=== PATIENT | female | born 1940 | race African-American/Black ===

== ENCOUNTER 2022-05-13 18:05 | Inpatient (IN) | payer OTHER ==
[2022-05-13 18:18] VITALS: BMI 30.5
[2022-05-13] MEDS ORDERED: methylPREDNISolone NA SUCC 125 MG/2 ML VIAL IVPUSH ONE (19:45)
[2022-05-13] MEDS ORDERED: AZITHROMYCIN IVPB 500 MG in DEXTROSE 5%-WATER - 250 ML IVPB ONE (19:46)
[2022-05-13 19:48] LABS: BASO % 1.6 % (0-2.0); EOS % 2.3 % (0-4.5); HEMATOCRIT 33.8 % (32.4-45.2); HEMOGLOBIN 10.7 GM/dL (10.7-15.3); LYMPH % 20.5 % (8-40); MCH 29.3 pg (25.7-33.7); MCHC 31.7 g/dl (32.0-36.0); MEAN CELL VOLUME 92.6 fl (80-96); MEAN PLT VOLUME 8.6 fl (7.5-11.1); MONO % 8.8 % (3.8-10.2); NEUT % 66.8 % (42.8-82.8); PLATELET COUNT 221 10^3/uL (134-434); RBC 3.65 M/mm3 (3.60-5.2); RDW 15.7 % (11.6-15.6); WHITE BLOOD COUNT 6.1 K/mm3 (4.0-10.0)
[2022-05-13] MEDS ORDERED: ACETAMINOPHEN 1000 MG/100 ML BAG IVPB ONE (19:48)
[2022-05-13] MEDS ORDERED: ALBUTEROL SO4 2.5/IPRATROPIUM 0.5 INH SOL 3 ML VIAL.NEB. NEB ONE (19:53)
[2022-05-13] MEDS ORDERED: methylPREDNISolone NA SUCC 125 MG/2 ML VIAL ONE (19:54)
[2022-05-13] MEDS ORDERED: AZITHROMYCIN IVPB 500 MG/250 ML BAG IVPB ONE (19:54)
[2022-05-13] MEDS ORDERED: ACETAMINOPHEN INJECTION 100 ML IVPB ONE (19:54)
[2022-05-13] MEDS: ALBUTEROL SO4 2.5/IPRATROPIUM 0.5 INH SOL 3 ML VIAL.NEB. NEB SCH ×3 (20:00→20:30)
[2022-05-13 20:09] LABS: CALCIUM 8.4 mg/dL (8.5-10.1)
[2022-05-13 20:10] LABS: ALBUMIN 2.6 g/dl (3.4-5.0); BLOOD UREA NITROGEN 27.9 mg/dL (7-18)
[2022-05-13 20:13] LABS: CREATININE 1.5 mg/dL (0.55-1.3)
[2022-05-13 20:15] LABS: BILIRUBIN,TOTAL 0.4 mg/dL (0.2-1); TOT PROT 6.6 g/dl (6.4-8.2)
[2022-05-13 20:18] LABS: N-TERMINAL BNP 5128.7 pg/ml (5-450)
[2022-05-13] MEDS ORDERED: FUROSEMIDE 40 MG/4 ML INJECTABLE VIAL IVPUSH ONE (20:26)
[2022-05-13 20:56] LABS: ANISOCYTOSIS 1+; MACROCYTOSIS 0
[2022-05-13] MEDS ORDERED: OSELTAMIVIR PHOSPHATE 75 MG CAPSULE PO ONE (22:20)
[2022-05-13] MEDS ORDERED: FUROSEMIDE 40 MG/4 ML INJECTABLE VIAL ONE (22:24)
[2022-05-13] MEDS ORDERED: SENNOSIDES 8.6MG TABLET (FP) PO PRN (23:29)
[2022-05-13] MEDS ORDERED: diphenhydrAMINE HCL 25 MG CAPSULE (FP) PO PRN (23:32)
[2022-05-14] MEDS: APIXABAN 5 MG TABLET PO SCH ×3 (00:08→23:21)
[2022-05-14] MEDS: INSULIN SLIDING SCALE (NOVOLOG) 1 VIAL SQ SCH ×4 (06:18→23:27)
[2022-05-14 08:18] LABS: INR 1.39 (0.83-1.09)
[2022-05-14 08:20] LABS: BASO % 0.3 % (0-2.0); HEMOGLOBIN 10.5 GM/dL (10.7-15.3); LYMPH % 17.6 % (8-40); MCH 29.6 pg (25.7-33.7); MCHC 31.8 g/dl (32.0-36.0); MEAN CELL VOLUME 92.8 fl (80-96); MONO % 1.5 % (3.8-10.2); NEUT % 80.6 % (42.8-82.8); PLATELET COUNT 183 10^3/uL (134-434); RBC 3.56 M/mm3 (3.60-5.2); RDW 15.9 % (11.6-15.6)
[2022-05-14 08:21] LABS: ACTIVATED PTT 33.5 SECONDS (25.2-36.5)
[2022-05-14 08:23] LABS: CALCIUM 8.5 mg/dL (8.5-10.1)
[2022-05-14 08:24] LABS: BLOOD UREA NITROGEN 31.8 mg/dL (7-18)
[2022-05-14 08:27] LABS: CREATININE 1.6 mg/dL (0.55-1.3); PHOSPHOROUS 4.4 mg/dL (2.5-4.9)
[2022-05-14] MEDS: FOLIC ACID 1 MG TABLET (FP) PO SCH (10:18)
[2022-05-14] MEDS: FLUTICASONE PROP 0.05% 16 GM NASAL SPRAY NS SCH ×2 (10:18→23:29)
[2022-05-14] MEDS: metoPROLOL SUCCINATE 25 MG TAB.SR.24H (FP) PO SCH (10:18)
[2022-05-14] MEDS: OSELTAMIVIR PHOSPHATE 30 MG CAPSULE PO SCH ×2 (10:18→23:22)
[2022-05-14] MEDS: PANTOPRAZOLE 20 MG TABLET PO SCH (10:18)
[2022-05-14] MEDS: amLODIPine BESYLATE 5 MG TABLET (FP) PO SCH (13:32)
[2022-05-14] MEDS: DOCUSATE SODIUM 100 MG CAPSULE (FP) PO SCH (23:10)
[2022-05-14] MEDS: guaiFENesin/D-M SUGAR-FREE/ACLHOL-FREE 118 ML BOTTLE PO PRN (23:28)
[2022-05-14] MEDS ORDERED: ACETAMINOPHEN 325 MG TABLET (FP) PO PRN (23:53)
[2022-05-15] MEDS: INSULIN SLIDING SCALE (NOVOLOG) 1 VIAL SQ SCH ×4 (06:24→21:22)
[2022-05-15] MEDS: guaiFENesin/D-M SUGAR-FREE/ACLHOL-FREE 118 ML BOTTLE PO PRN (07:47)
[2022-05-15] MEDS: amLODIPine BESYLATE 5 MG TABLET (FP) PO SCH (10:34)
[2022-05-15] MEDS: FOLIC ACID 1 MG TABLET (FP) PO SCH (10:34)
[2022-05-15] MEDS: FLUTICASONE PROP 0.05% 16 GM NASAL SPRAY NS SCH ×2 (10:34→21:22)
[2022-05-15] MEDS: APIXABAN 5 MG TABLET PO SCH ×2 (10:34→21:23)
[2022-05-15] MEDS: metoPROLOL SUCCINATE 25 MG TAB.SR.24H (FP) PO SCH (10:34)
[2022-05-15] MEDS: PANTOPRAZOLE 20 MG TABLET PO SCH (10:34)
[2022-05-15] MEDS: OSELTAMIVIR PHOSPHATE 30 MG CAPSULE PO SCH ×2 (10:37→21:22)
[2022-05-15] MEDS: methylPREDNISolone NA SUCC 40 MG/1 ML VIAL IVPUSH SCH ×2 (12:45→17:45)
[2022-05-15] MEDS: DOCUSATE SODIUM 100 MG CAPSULE (FP) PO SCH (21:40)
[2022-05-16] MEDS: methylPREDNISolone NA SUCC 40 MG/1 ML VIAL IVPUSH SCH ×2 (01:31→09:42)
[2022-05-16 06:13] VITALS: PULSE 85; TEMP 98.2
[2022-05-16] MEDS: INSULIN SLIDING SCALE (NOVOLOG) 1 VIAL SQ SCH ×2 (06:14→12:07)
[2022-05-16] MEDS: FOLIC ACID 1 MG TABLET (FP) PO SCH (09:41)
[2022-05-16] MEDS: metoPROLOL SUCCINATE 25 MG TAB.SR.24H (FP) PO SCH (09:41)
[2022-05-16] MEDS: PANTOPRAZOLE 20 MG TABLET PO SCH (09:41)
[2022-05-16] MEDS: APIXABAN 5 MG TABLET PO SCH (09:42)
[2022-05-16] MEDS: FLUTICASONE PROP 0.05% 16 GM NASAL SPRAY NS SCH (09:42)
[2022-05-16] MEDS: amLODIPine BESYLATE 5 MG TABLET (FP) PO SCH (09:42)
[2022-05-16] MEDS: OSELTAMIVIR PHOSPHATE 30 MG CAPSULE PO SCH (09:45)
[2022-05-16] MEDS ORDERED: ALBUTEROL SO4 HFA INHALER IH SCH (11:00)
[2022-05-16 11:22] VITALS: BP 153/92; RESP 18
== END 2022-05-16 15:22 | DRG 194 ==
LOC: JER 18:05 → JERBED 20:27 → J4W 23:22
PROVIDERS: ADMIT Internal Medicine; ATTEND Internal Medicine
DX: J10.1 Influenza due to other identified influenza virus with other respiratory manifestations (principal); J44.1 Chronic obstructive pulmonary disease with (acute) exacerbation; E78.00 Pure hypercholesterolemia, unspecified; I10 Essential (primary) hypertension; E11.9 Type 2 diabetes mellitus without complications; R60.9 Edema, unspecified; Z85.3 Personal history of malignant neoplasm of breast
CPT/HCPCS: 0241U-QW; 36415; 71045-TC-FY; 80048; 80053; 82962; 83735; 83880; 84100; 84484; 85025; 85610; 85730; 93005; 93010; 99285-25

== ENCOUNTER 2023-06-28 14:41 | Inpatient (IN) | payer OTHER ==
[2023-06-28 16:06] LABS: BASO % 0.7 % (0-2.0); EOS % 2.9 % (0-4.5); HEMATOCRIT 36.4 % (32.4-45.2); HEMOGLOBIN 11.9 GM/dL (10.7-15.3); MCH 30.1 pg (25.7-33.7); MCHC 32.6 g/dl (32.0-36.0); MEAN CELL VOLUME 92.2 fl (80-96); MEAN PLT VOLUME 9.1 fl (7.5-11.1); MONO % 7.7 % (3.8-10.2); NEUT % 46.7 % (42.8-82.8); PLATELET COUNT 294 10^3/uL (134-434); RBC 3.95 M/mm3 (3.60-5.2); RDW 14.7 % (11.6-15.6); WHITE BLOOD COUNT 8.2 K/mm3 (4.0-10.0)
[2023-06-28 16:13] LABS: INR 1.53 (0.83-1.09); PROTHROMBIN TIME (PATIENT) 17.7 SEC (9.7-13.0)
[2023-06-28 16:15] LABS: ACTIVATED PTT 34.7 SECONDS (25.2-36.5)
[2023-06-28 16:20] LABS: EPI CELLS 3 /uL (0-25.1); HYALINE CASTS 1 /uL (0-3.1); URINE APPEARANCE TURBID; URINE BACTERIA >9,000 /uL (0-1359); URINE BILIRUBIN NEGATIVE (NEGATIVE); URINE COLOR YELLOW; URINE GLUCOSE (UA) NEGATIVE (NEGATIVE); URINE KETONE NEGATIVE (NEGATIVE); URINE LEUK ESTERASE 3+ (NEGATIVE); URINE NITRITE POSITIVE (NEGATIVE); URINE PROTEIN 1+ (NEGATIVE); URINE RBC 95 /uL (0-23.9); URINE WBC 5254 /uL (0-25.8)
[2023-06-28 16:23] LABS: CHLORIDE 110 mmol/L (98-107); POTASSIUM 4.2 mmol/L (3.5-5.1); SODIUM 144 mmol/L (136-145)
[2023-06-28 16:25] LABS: ALBUMIN 2.6 g/dl (3.4-5.0); ANION GAP 8 mmol/L (4-13); CALCIUM 8.9 mg/dL (8.5-10.1); CO2 26 mmol/L (21-32)
[2023-06-28 16:27] LABS: BLOOD UREA NITROGEN 24.3 mg/dL (7-18); GLUCOSE,RANDOM 144 mg/dL (74-106)
[2023-06-28 16:28] LABS: SGPT/ALT 17 U/L (13-61)
[2023-06-28 16:29] LABS: CREATININE 1.1 mg/dL (0.55-1.3); SGOT/AST 16 U/L (15-37)
[2023-06-28 16:30] LABS: CHOLESTEROL 152 mg/dL (50-200); TOT PROT 6.5 g/dl (6.4-8.2)
[2023-06-28 16:31] LABS: LDL CHOLESTEROL (ONLY SJRH) 88 mg/dL (5-100)
[2023-06-28 16:32] LABS: BILIRUBIN,TOTAL 0.5 mg/dL (0.2-1)
[2023-06-28] MEDS: SODIUM CHLORIDE 1,000 ML IV SCH (16:32)
[2023-06-28 16:33] LABS: ALK PHOS 99 U/L (45-117); HDL CHOLESTEROL 40 mg/dL (40-60)
[2023-06-28] MEDS ORDERED: PIPERACILLIN/TAZOB 4.5 GM 4.5 GM/100 ML BAG IVPB ONE (16:34)
[2023-06-28] MEDS: PIPERACILLIN/TAZOB 4.5 GM 4.5 GM in DEXTROSE 5%-WATER 100 ML IVPB ONE (16:34)
[2023-06-28] MEDS: SODIUM CHLORIDE 0.9% 500 ML INFUS.BAG IV ONE (16:35)
[2023-06-28] MEDS ORDERED: ALBUTEROL SO4 0.083% IH SOL 2.5 MG/3 ML VIAL.NEB. NEB PRN (16:59)
[2023-06-28] MEDS ORDERED: ROSUVASTATIN CA 20 MG TABLET ONE (21:54)
[2023-06-28] MEDS ORDERED: DOCUSATE SODIUM 100 MG CAPSULE (FP) PO ONE (21:54)
[2023-06-28] MEDS ORDERED: APIXABAN 5 MG TABLET ONE (21:54)
[2023-06-28] MEDS ORDERED: metFORMIN HCL 500 MG TABLET (FP) ONE (21:54)
[2023-06-28] MEDS ORDERED: ROSUVASTATIN CA 5 MG TABLET ONE (21:59)
[2023-06-28] MEDS ORDERED: [UNRECOGNIZED DRUG - OTHER] NS SCH (22:00)
[2023-06-28] MEDS: DOCUSATE SODIUM 100 MG CAPSULE (FP) PO SCH (22:18)
[2023-06-28] MEDS: APIXABAN 5 MG TABLET PO SCH (22:18)
[2023-06-28] MEDS: ROSUVASTATIN CA 5 MG TABLET PO SCH (22:18)
[2023-06-28] MEDS: metFORMIN HCL 500 MG TABLET (FP) PO SCH (22:18)
[2023-06-28] MEDS: INSULIN ASPART SLIDING SCALE (NOVOLOG) 1 VIAL SQ SCH (22:19)
[2023-06-29] MEDS ORDERED: INSULIN (NOVOLOG) ASPART 100 UNITS/ML 10ML VIAL ONE (06:36)
[2023-06-29] MEDS ORDERED: metFORMIN HCL 500 MG TABLET (FP) ONE (06:36)
[2023-06-29] MEDS: EMPAGLIFLOZIN (JARDIANCE) 25 MG TABLET PO SCH (06:42)
[2023-06-29] MEDS: FLUTICASONE PROP 0.05% 16 GM NASAL SPRAY NS SCH (06:47)
[2023-06-29] MEDS: PANTOPRAZOLE 20 MG TABLET PO SCH (09:10)
[2023-06-29] MEDS: metoPROLOL SUCCINATE 25 MG TAB.SR.24H (FP) PO SCH (09:10)
[2023-06-29 09:23] LABS: BASO % 0.9 % (0-2.0); EOS % 2.7 % (0-4.5); HEMATOCRIT 36.9 % (32.4-45.2); HEMOGLOBIN 11.7 GM/dL (10.7-15.3); LYMPH % 28.4 % (8-40); MCH 29.7 pg (25.7-33.7); MCHC 31.7 g/dl (32.0-36.0); MEAN CELL VOLUME 93.5 fl (80-96); MEAN PLT VOLUME 9.1 fl (7.5-11.1); MONO % 6.5 % (3.8-10.2); NEUT % 61.5 % (42.8-82.8); PLATELET COUNT 284 10^3/uL (134-434); RBC 3.94 M/mm3 (3.60-5.2); RDW 14.7 % (11.6-15.6)
[2023-06-29 09:39] LABS: POTASSIUM 4.4 mmol/L (3.5-5.1)
[2023-06-29 09:47] LABS: ALBUMIN 2.8 g/dl (3.4-5.0); BLOOD UREA NITROGEN 22.5 mg/dL (7-18); CALCIUM 8.9 mg/dL (8.5-10.1); MAGNESIUM 1.9 mg/dL (1.8-2.4)
[2023-06-29 09:50] LABS: CREATININE 1.1 mg/dL (0.55-1.3)
[2023-06-29 09:52] LABS: BILIRUBIN,TOTAL 0.6 mg/dL (0.2-1); TOT PROT 6.5 g/dl (6.4-8.2)
[2023-06-29] MEDS ORDERED: PATIENT'S OWN MEDICATION (NON-FORMULARY) (Empagliflozin 25 MG Tablet) PO SCH (10:00)
[2023-06-29] MEDS ORDERED: PATIENT'S OWN MEDICATION (NON-FORMULARY) (Fluticasone Furoate [Arnuity Ellipta] 100 MCG Bl IH SCH (10:00)
[2023-06-29] MEDS ORDERED: PATIENT'S OWN MEDICATION (NON-FORMULARY) (Omeprazole 20 MG Capsule.Dr) PO SCH (10:00)
[2023-06-29] MEDS ORDERED: CEFTRIAXONE 1 GM/50 ML BAG ONE (10:24)
[2023-06-29] MEDS: CEFTRIAXONE 1 GM in DEXTROSE 5%-WATER - 50 ML IVPB SCH (10:25)
[2023-06-29] MEDS ORDERED: ERTAPENEM SODIUM 1 GM VIAL ONE (12:21)
[2023-06-29] MEDS: ERTAPENEM SODIUM 1 GM in SODIUM CHLORIDE 50 ML IVPB SCH (12:27)
[2023-06-30] MEDS ORDERED: INSULIN (LEVEMIR) 100 UNITS/ML UNITS SQ ONE (10:10)
[2023-06-30] MEDS ORDERED: DOCUSATE SODIUM 100 MG CAPSULE (FP) PO ONE (22:14)
[2023-06-30] MEDS ORDERED: ROSUVASTATIN CA 5 MG TABLET ONE (22:14)
[2023-06-30] MEDS ORDERED: APIXABAN 5 MG TABLET ONE (22:14)
[2023-06-30] MEDS ORDERED: metFORMIN HCL 500 MG TABLET (FP) ONE (22:14)
[2023-06-30] MEDS ORDERED: INSULIN (NOVOLOG) ASPART 100 UNITS/ML 10ML VIAL ONE (22:28)
[2023-07-01] MEDS ORDERED: ACETAMINOPHEN 325 MG TABLET (FP) ONE (06:24)
[2023-07-01] MEDS: ACETAMINOPHEN 325 MG TABLET (FP) PO PRN (06:26)
[2023-07-01] MEDS ORDERED: INSULIN (NOVOLOG) ASPART 100 UNITS/ML 10ML VIAL ONE (11:05)
[2023-07-01] MEDS ORDERED: CARBIDOPA/LEVODOPA 25/100 TABLET (FP) ONE ×2 (12:24→17:05)
[2023-07-01] MEDS ORDERED: ROSUVASTATIN CA 5 MG TABLET ONE (21:13)
[2023-07-01] MEDS ORDERED: APIXABAN 5 MG TABLET ONE (21:14)
[2023-07-01] MEDS ORDERED: DOCUSATE SODIUM 100 MG CAPSULE (FP) PO ONE (21:14)
[2023-07-01] MEDS ORDERED: metFORMIN HCL 500 MG TABLET (FP) ONE (21:14)
[2023-07-02] MEDS ORDERED: CARBIDOPA/LEVODOPA 25/100 TABLET (FP) ONE (04:11)
[2023-07-03 11:54] VITALS: BMI 43.7
[2023-07-03] MEDS: AMINO ACIDS/PROTEIN HYDROLYS 30 ML LIQUID.PKT PO SCH (14:41)
[2023-07-04 03:14] VITALS: RESP 18
[2023-07-04] MEDS: VITAMIN B COMP W-C 1 EA TABLET (NEPHRO-VITE) PO SCH (09:20)
[2023-07-04 18:00] VITALS: BP 142/84; PULSE 82; TEMP 98
== END 2023-07-04 18:54 | DRG 689 ==
LOC: JER 14:41 → JERBED 16:30 → J6S 07-02 17:36
PROVIDERS: ADMIT Family Medicine; ATTEND Family Medicine
DX: N39.0 Urinary tract infection, site not specified (principal); G93.41 Metabolic encephalopathy; I13.0 Hypertensive heart and chronic kidney disease with heart failure and stage 1 through stage 4 chronic kidney disease, or unspecified chronic kidney disease; I50.32 Chronic diastolic (congestive) heart failure; N18.9 Chronic kidney disease, unspecified; E78.5 Hyperlipidemia, unspecified; J44.9 Chronic obstructive pulmonary disease, unspecified; D64.9 Anemia, unspecified; Z86.718 Personal history of other venous thrombosis and embolism; Z79.01 Long term (current) use of anticoagulants; G20.A1 Parkinson's disease without dyskinesia, without mention of fluctuations; E11.42 Type 2 diabetes mellitus with diabetic polyneuropathy
CPT/HCPCS: 36415; 70450-TC; 70496-TC; 70498-TC; 70544-TC; 70551-TC; 71045-TC-FY; 74019-TC-FY; 80053; 80061; 81003; 82550; 82962; 83036; 83605; 83735; 84443; 84484; 85025; 85610; 85730; 86850; 86900; 86901; 87040; 87086; 87186; 93005; 93010; 99285-25

== ENCOUNTER 2023-07-23 10:22 | Inpatient (IN) | payer OTHER ==
[2023-07-23] MEDS ORDERED: PIPERACILLIN/TAZOB 4.5 GM 4.5 GM/100 ML BAG IVPB ONE (11:06)
[2023-07-23] MEDS ORDERED: VANCOMYCIN 1 GRAM (PRE-DOCKED) 1,000 MG/250 ML BAG IVPB ONE (11:06)
[2023-07-23 11:07] LABS: VENOUS BASE EXCESS -20.3 mmol/L (-2-2); VENOUS O2 SATURATION 61.7 % (70-80)
[2023-07-23 11:08] LABS: HEMATOCRIT 36.7 % (32.4-45.2); HEMOGLOBIN 10.7 GM/dL (10.7-15.3); MCH 29.1 pg (25.7-33.7); MCHC 29.1 g/dl (32.0-36.0); MEAN CELL VOLUME 99.8 fl (80-96); MEAN PLT VOLUME 10.4 fl (7.5-11.1); PLATELET COUNT 306 10^3/uL (134-434); RBC 3.67 M/mm3 (3.60-5.2); RDW 18.2 % (11.6-15.6); WHITE BLOOD COUNT 28.2 K/mm3 (4.0-10.0)
[2023-07-23 11:11] LABS: VENOUS PH 6.959 (7.310-7.410)
[2023-07-23] MEDS: VANCOMYCIN 1,000 MG in DEXTROSE 5%-WATER - 250 ML IVPB ONE (11:12)
[2023-07-23] MEDS: PIPERACILLIN/TAZOBACTAM 4.5 GM VIAL IVPB ONE (11:12)
[2023-07-23 11:15] VITALS: BMI 36.9
[2023-07-23 11:21] LABS: CHLORIDE 137 mmol/L (98-107); INR 2.08 (0.83-1.09); POTASSIUM 5.3 mmol/L (3.5-5.1)
[2023-07-23 11:23] LABS: ALBUMIN 1.4 g/dl (3.4-5.0); BLOOD UREA NITROGEN 66.6 mg/dL (7-18); CALCIUM 8.7 mg/dL (8.5-10.1); CO2 13 mmol/L (21-32); GLUCOSE,RANDOM 125 mg/dL (74-106)
[2023-07-23 11:24] LABS: ACTIVATED PTT 25.2 SECONDS (25.2-36.5)
[2023-07-23 11:26] LABS: CREATININE 3.3 mg/dL (0.55-1.3); SGOT/AST 54 U/L (15-37); SGPT/ALT 24 U/L (13-61)
[2023-07-23 11:28] LABS: BILIRUBIN,TOTAL 0.5 mg/dL (0.2-1); TOT PROT 6.2 g/dl (6.4-8.2)
[2023-07-23 11:29] LABS: ALK PHOS 166 U/L (45-117); ANION GAP 16 mmol/L (4-13); SODIUM 166 mmol/L (136-145)
[2023-07-23] MEDS: SODIUM CHLORIDE 1,000 ML IV STA (11:30)
[2023-07-23 11:51] LABS: LACTIC ACID 11.6 mmol/L (0.4-2.0)
[2023-07-23 12:26] VITALS: TEMP 95.4
[2023-07-23 12:33] LABS: EPI CELLS 12 /uL (0-25.1); HYALINE CASTS 4 /uL (0-3.1); URINE APPEARANCE TURBID; URINE BACTERIA 37 /uL (0-1359); URINE BILIRUBIN NEGATIVE (NEGATIVE); URINE COLOR YELLOW; URINE GLUCOSE (UA) 2+ (NEGATIVE); URINE KETONE TRACE (NEGATIVE); URINE LEUK ESTERASE 3+ (NEGATIVE); URINE NITRITE NEGATIVE (NEGATIVE); URINE PROTEIN 1+ (NEGATIVE); URINE UROBILINOGEN 0.2 mg/dL (0.2-1.0); URINE WBC 4561 /uL (0-25.8)
[2023-07-23] MEDS ORDERED: SODIUM CHLORIDE 1,000 ML IV STA (14:09)
[2023-07-23] MEDS ORDERED: LACTATED RINGERS SOLUTION 1,000 ML/1,000 ML INFUS.BAG IV SCH (14:15)
[2023-07-23] MEDS ORDERED: ALBUTEROL SO4 0.083% IH SOL 2.5 MG/3 ML VIAL.NEB. NEB PRN (14:23)
[2023-07-23] MEDS ORDERED: NOREPINEPHRINE BITARTRATE/D5W 8 MG/250 ML BAG IVPB SCH (14:30)
[2023-07-23] MEDS ORDERED: ALBUTEROL SO4 HFA INHALER IH PRN (14:30)
[2023-07-23] MEDS ORDERED: FENTANYL NS IVPB 500 MCG/100 ML BAG IVPB SCH (14:30)
[2023-07-23 14:35] LABS: URINE RBC 496.1 /uL (0-23.9)
[2023-07-23 14:36] LABS: YEAST POSITIVE (NEGATIVE)
[2023-07-23 14:45] VITALS: BP 99/40; PULSE 118; RESP 20
[2023-07-23] MEDS ORDERED: PIPERACILLIN/TAZOB 3.375 GM 3.375 GM in DEXTROSE 5%-WATER - 50 ML IVPB SCH (18:00)
[2023-07-23] MEDS ORDERED: MUPIROCIN 2% TOPICAL OINTMENT FOR DECOLONIZATION NS SCH (22:00)
[2023-07-23] MEDS ORDERED: CHLORHEXIDINE GLUCONATE 4% CLEANSER FOR DECOLONIZATION TP SCH (22:00)
[2023-07-23] MEDS ORDERED: HEPARIN NA (PORCINE) 5,000 UNITS/ML 1ML VIAL SQ SCH (22:00)
[2023-07-23] MEDS ORDERED: APIXABAN 5 MG TABLET PO SCH (22:00)
[2023-07-24] MEDS ORDERED: PANTOPRAZOLE SODIUM 40 MG VIAL IVPUSH SCH (10:00)
== END 2023-07-23 19:00 | disposition expired | DRG 871 ==
LOC: JER 10:22 → JERBED 11:11
PROVIDERS: ADMIT Family Medicine; ATTEND Family Medicine
PROC: 5A1935Z Respiratory Ventilation, Less than 24 Consecutive Hours (ICD-10-PCS; principal; 2023-07-23)
DX: A41.89 Other specified sepsis (principal); J69.0 Pneumonitis due to inhalation of food and vomit; J96.01 Acute respiratory failure with hypoxia; R65.21 Severe sepsis with septic shock; I50.32 Chronic diastolic (congestive) heart failure; I82.5Z1 Chronic embolism and thrombosis of unspecified deep veins of right distal lower extremity; N39.0 Urinary tract infection, site not specified; E87.0 Hyperosmolality and hypernatremia; E87.20 Acidosis, unspecified; I13.0 Hypertensive heart and chronic kidney disease with heart failure and stage 1 through stage 4 chronic kidney disease, or unspecified chronic kidney disease; N17.9 Acute kidney failure, unspecified; E78.5 Hyperlipidemia, unspecified; J44.9 Chronic obstructive pulmonary disease, unspecified; E87.5 Hyperkalemia; E11.22 Type 2 diabetes mellitus with diabetic chronic kidney disease; N18.9 Chronic kidney disease, unspecified; Z85.3 Personal history of malignant neoplasm of breast; I46.9 Cardiac arrest, cause unspecified
CPT/HCPCS: 0241U-QW; 36415; 71045-TC-FY; 80053; 81003; 82570; 82803; 83605; 84156; 84300; 84484; 85025; 85610; 85730; 86850; 86900; 86901; 87040; 87077; 87086; 87186; 93005; 93010; 99285-25